=== PATIENT | male | born 1975 | race Caucasian/White ===

== ENCOUNTER 2016-11-22 09:29 | Emergency (ER) | payer OTHER ==
[~2016-11-22] VITALS: Wt 90.7 kg
[~2016-11-22 09:29] MED LIST: BACTRIM DS 8001 TA1 PO; HYDROCODONE BIT1 T11 PO; KEFLEX500 MG PO; NAPROSYN500 MG PO; ROBITUSSIN-AC480 ML PO; SUDAFED60 MG PO; VIBRAMYCIN100 MG PO; VICODIN 5/500 505 MG PO; ZOVIRAX400 MG PO
[2016-11-22 10:06] LABS: BASO # 0.1 10*3/uL (0.0-0.1); BASO % 0.5 % (0.0-1.0); EOS # 0.4 10*3/uL (0.0-0.4); EOS % 3.7 % (1.0-4.0); HEMATOCRIT 44.7 % (42.0-52.0); HEMOGLOBIN 15.8 g/dl (14.0-18.0); LYMPH # 1.4 10*3/uL (1.3-4.4); LYMPH % 14.5 % (27.0-41.0); MEAN CELL VOLUME 86.3 fl (80.0-94.0); MEAN CORPUSCULAR HGB 30.5 pg (27.0-31.0); MEAN CORPUSCULAR HGB CONC 35.3 g/dl (33.0-37.0); NEUT % 70.9 % (47.0-73.0); PLATELET COUNT AUTOMATED 200 10*3/uL (130-400); RED BLOOD COUNT 5.18 10*6/uL (4.50-5.90); RED CELL DISTRI WIDTH 12.2 % (0-14.5); WHITE BLOOD COUNT 9.8 10*3/uL (4.8-10.8)
[2016-11-22 10:20] LABS: ALBUMIN 3.8 gm/dl (3.1-4.5); ALKALINE PHOSPHATASE 134 U/L (45-117); BILIRUBIN, TOTAL 2.8 mg/dl (0.2-1.0); BUN 9 mg/dl (7-24); CARBON DIOXIDE 27 mmol/L (21-32); CHLORIDE 101 mmol/L (98-107); EST GLOM FILT AFRICAN AMERICAN > 60 ml/min; GLUCOSE 99 mg/dL (65-99); POTASSIUM 4.1 mmol/L (3.5-5.1); SGOT/AST 106 IU/L (3-35); SGPT/ALT 185 U/L (12-78); SODIUM 138 mmol/L (136-145); TOTAL PROTEIN 8.1 gm/dL (6.4-8.2)
[2016-11-22] MEDS ORDERED: CEPHALEXIN500 M1 PO (10:42)
[2016-11-22] MEDS ORDERED: BACTRIM DS 8001 TA1 PO (10:42)
== END 2016-11-22 12:01 | disposition home or self-care (01) ==
LOC: ED 09:29
PROVIDERS: Nurse Practitioner Family
DX: L03.90 Cellulitis, unspecified (principal); F17.200 Nicotine dependence, unspecified, uncomplicated

== ENCOUNTER 2016-12-23 11:33 | Inpatient (IN) | payer OTHER ==
[~2016-12-23] VITALS: Ht 177.8 cm; Wt 81.7 kg
[~2016-12-23 11:33] MED LIST changes: +CEPHALEXIN500 M1 PO
[2016-12-23 11:41] VITALS: BP 134/90
[2016-12-23 12:18] LABS: BASO # 0.1 10*3/uL (0.0-0.1); BASO % 0.7 % (0.0-1.0); EOS # 0.1 10*3/uL (0.0-0.4); EOS % 1.7 % (1.0-4.0); HEMATOCRIT 43.5 % (42.0-52.0); HEMOGLOBIN 15.2 g/dl (14.0-18.0); LYMPH # 1.2 10*3/uL (1.3-4.4); LYMPH % 14.6 % (27.0-41.0); MEAN CELL VOLUME 85.3 fl (80.0-94.0); MEAN CORPUSCULAR HGB 29.8 pg (27.0-31.0); MEAN CORPUSCULAR HGB CONC 34.9 g/dl (33.0-37.0); MEAN PLATELET VOLUME 9.5 fl (9.6-12.3); MONO # 0.5 10*3/uL (0.1-1.0); MONO % 5.7 % (3.0-9.0); NEUT # 6.3 10*3/uL (2.3-7.9); NEUT % 76.8 % (47.0-73.0); PLATELET COUNT AUTOMATED 262 10*3/uL (130-400); RED CELL DISTRI WIDTH 12.3 % (0-14.5); WHITE BLOOD COUNT 8.2 10*3/uL (4.8-10.8)
[2016-12-23 12:32] LABS: BILIRUBIN NEGATIVE (NEGATIVE); BLOOD NEGATIVE (NEGATIVE); CLARITY CLEAR (CLEAR); COLOR YELLOW (YELLOW); GLUCOSE NEGATIVE (NEGATIVE); KETONE NEGATIVE (NEGATIVE); LEUKO ESTERASE NEGATIVE (NEGATIVE); NITRITE NEGATIVE (NEGATIVE); PH 8.5 (5.0-9.0); PROTEIN TRACE (NEGATIVE)
[2016-12-23 12:34] LABS: ALBUMIN 3.7 gm/dl (3.1-4.5); ALKALINE PHOSPHATASE 116 U/L (45-117); BILIRUBIN, TOTAL 1.5 mg/dl (0.2-1.0); BUN 7 mg/dl (7-24); CARBON DIOXIDE 28 mmol/L (21-32); CHLORIDE 106 mmol/L (98-107); EST GLOM FILT AFRICAN AMERICAN > 60 ml/min; GLUCOSE 134 mg/dL (65-99); MAGNESIUM 2.1 mg/dL (1.5-2.1); POTASSIUM 3.8 mmol/L (3.5-5.1); SGOT/AST 74 IU/L (3-35); SGPT/ALT 141 U/L (12-78); SODIUM 140 mmol/L (136-145); TOTAL PROTEIN 7.8 gm/dL (6.4-8.2)
[2016-12-23 12:36] LABS: URINE AMPHETAMINES < 1000 (1000ng/ml); URINE BARBITURATES < 200 (200ng/ml); URINE COCAINE > 300 (300ng/ml)
[2016-12-23 12:40] LABS: C-REACTIVE PROTEIN < 0.29 MG/DL (0-0.3)
[2016-12-23 12:51] LABS: BACTERIA TRACE; MUCOUS 2+; URINE REFLEX COMMENT NO (NO)
[2016-12-23 12:55] VITALS: BP 121/72
[2016-12-23 13:49] LABS: PROTHROMBIN TIME 10.3 SECONDS (9.0-12.4)
[2016-12-23 14:00] VITALS: BP 114/58
[2016-12-23 15:42] VITALS: BP 126/73
[2016-12-23 20:00] VITALS: BP 117/71
[2016-12-24] VITALS: BP 118/64
[2016-12-24 04:00] VITALS: BP 133/71
[2016-12-24 08:00] VITALS: BP 124/66
[2016-12-24 08:34] LABS: HEPATITIS C VIRUS ANTIBODY >11.0 s/co (0.0-0.9)
[2016-12-24 12:00] VITALS: BP 118/70
[2016-12-24 16:00] VITALS: BP 128/69
[2016-12-24 20:00] VITALS: BP 111/58
[2016-12-25 00:06] VITALS: BP 121/67
[2016-12-25 04:00] VITALS: BP 120/65
[2016-12-25 06:11] LABS: BASO # 0.1 10*3/uL (0.0-0.1); BASO % 0.6 % (0.0-1.0); EOS # 0.3 10*3/uL (0.0-0.4); HEMATOCRIT 47.5 % (42.0-52.0); HEMOGLOBIN 15.9 g/dl (14.0-18.0); IG # 0.1 10*3/uL (0.0-0.1); MEAN CORPUSCULAR HGB 29.7 pg (27.0-31.0); MEAN CORPUSCULAR HGB CONC 33.5 g/dl (33.0-37.0); MEAN PLATELET VOLUME 9.5 fl (9.6-12.3); MONO # 0.6 10*3/uL (0.1-1.0); MONO % 7.9 % (3.0-9.0); NEUT # 4.7 10*3/uL (2.3-7.9); NEUT % 60.9 % (47.0-73.0); PLATELET COUNT AUTOMATED 223 10*3/uL (130-400); RED BLOOD COUNT 5.36 10*6/uL (4.50-5.90); RED CELL DISTRI WIDTH 12.9 % (0-14.5); WHITE BLOOD COUNT 7.8 10*3/uL (4.8-10.8)
[2016-12-25 06:30] LABS: MEAN CELL VOLUME 88.6 fl (80.0-94.0)
[2016-12-25 06:36] LABS: BUN 11 mg/dl (7-24); CARBON DIOXIDE 32 mmol/L (21-32); CHLORIDE 104 mmol/L (98-107); EST GLOM FILT AFRICAN AMERICAN > 60 ml/min; GLUCOSE 111 mg/dL (65-99); MAGNESIUM 2.3 mg/dL (1.5-2.1); PHOSPHOROUS 3.6 mg/dL (2.5-4.9); POTASSIUM 3.6 mmol/L (3.5-5.1); SODIUM 143 mmol/L (136-145)
[2016-12-25 08:00] VITALS: BP 120/70
[2016-12-25 12:00] VITALS: BP 124/66
[2016-12-25 16:00] VITALS: BP 120/62
[2016-12-25 20:00] VITALS: BP 120/60
[2016-12-26] VITALS: BP 114/67
[2016-12-26 08:00] VITALS: BP 110/62
[2016-12-26 12:00] VITALS: BP 122/78
[2016-12-26 16:00] VITALS: BP 130/76
[2016-12-26 20:00] VITALS: BP 123/69
[2016-12-27] VITALS: BP 108/57
[2016-12-27 08:00] VITALS: BP 112/70
[2016-12-27 12:00] VITALS: BP 108/60
[2016-12-27 16:00] VITALS: BP 102/88
[2016-12-27 20:00] VITALS: BP 137/85
[2016-12-28] VITALS: BP 121/64
[2016-12-28 06:51] LABS: BASO # 0.1 10*3/uL (0.0-0.1); BASO % 1.1 % (0.0-1.0); EOS # 0.4 10*3/uL (0.0-0.4); EOS % 4.5 % (1.0-4.0); HEMATOCRIT 47.3 % (42.0-52.0); IG # 0.1 10*3/uL (0.0-0.1); LYMPH # 2.3 10*3/uL (1.3-4.4); LYMPH % 27.8 % (27.0-41.0); MEAN CELL VOLUME 88.1 fl (80.0-94.0); MEAN CORPUSCULAR HGB 29.8 pg (27.0-31.0); MEAN CORPUSCULAR HGB CONC 33.8 g/dl (33.0-37.0); MEAN PLATELET VOLUME 9.7 fl (9.6-12.3); MONO # 0.7 10*3/uL (0.1-1.0); NEUT # 4.6 10*3/uL (2.3-7.9); NEUT % 56.6 % (47.0-73.0); PLATELET COUNT AUTOMATED 248 10*3/uL (130-400); RED BLOOD COUNT 5.37 10*6/uL (4.50-5.90); RED CELL DISTRI WIDTH 12.7 % (0-14.5); WHITE BLOOD COUNT 8.1 10*3/uL (4.8-10.8)
[2016-12-28 07:17] LABS: EST GLOM FILT AFRICAN AMERICAN > 60 ml/min
[2016-12-28 08:00] VITALS: BP 118/68
[2016-12-28] MEDS ORDERED: ZOFRAN4 MG PO (11:44)
[2016-12-28] MEDS ORDERED: ATARAX,VISTARIL50 MG PO (11:44)
[2016-12-28] MEDS ORDERED: ROPINIROLE HYD0.5 MG PO (11:44)
== END 2016-12-28 12:31 | disposition home or self-care (01) | DRG 897 ==
LOC: ED 11:33 → ICCU 12:13 → EDHOLD 12:13 → 5E 13:17 → ICCU 15:17 → 4E 12-24 17:53
PROVIDERS: Emergency Medicine; Internal Medicine
DX: F11.23 Opioid dependence with withdrawal (principal); E83.41 Hypermagnesemia; B19.20 Unspecified viral hepatitis C without hepatic coma; R73.9 Hyperglycemia, unspecified; D72.825 Bandemia; F14.10 Cocaine abuse, uncomplicated; F19.10 Other psychoactive substance abuse, uncomplicated; Z91.013 Allergy to seafood; Z91.041 Radiographic dye allergy status

== ENCOUNTER 2017-01-23 03:52 | Inpatient (IN) | payer OTHER ==
[~2017-01-23] VITALS: Ht 180.3 cm; Wt 86.8 kg
[~2017-01-23 03:52] MED LIST changes: +ATARAX,VISTARIL50 MG PO; +ROPINIROLE HYD0.5 MG PO; +ZOFRAN4 MG PO
[2017-01-23 04:06] VITALS: BP 133/73
[2017-01-23 05:19] LABS: BASO # 0.1 10*3/uL (0.0-0.1); BASO % 0.5 % (0.0-1.0); EOS # 0.2 10*3/uL (0.0-0.4); EOS % 1.6 % (1.0-4.0); HEMATOCRIT 42.5 % (42.0-52.0); HEMOGLOBIN 14.8 g/dl (14.0-18.0); IG # 0.1 10*3/uL (0.0-0.1); LYMPH # 1.1 10*3/uL (1.3-4.4); LYMPH % 10.2 % (27.0-41.0); MEAN CELL VOLUME 86.4 fl (80.0-94.0); MEAN CORPUSCULAR HGB 30.1 pg (27.0-31.0); MEAN CORPUSCULAR HGB CONC 34.8 g/dl (33.0-37.0); MEAN PLATELET VOLUME 9.5 fl (9.6-12.3); MONO # 0.7 10*3/uL (0.1-1.0); MONO % 6.7 % (3.0-9.0); NEUT # 8.6 10*3/uL (2.3-7.9); NEUT % 80.3 % (47.0-73.0); PLATELET COUNT AUTOMATED 238 10*3/uL (130-400); RED BLOOD COUNT 4.92 10*6/uL (4.50-5.90); RED CELL DISTRI WIDTH 12.6 % (0-14.5); WHITE BLOOD COUNT 10.7 10*3/uL (4.8-10.8)
[2017-01-23 05:37] LABS: ALBUMIN 3.3 gm/dl (3.1-4.5); ALKALINE PHOSPHATASE 132 U/L (45-117); BILIRUBIN, TOTAL 1.2 mg/dl (0.2-1.0); BUN 12 mg/dl (7-24); C-REACTIVE PROTEIN 0.55 MG/DL (0-0.3); CARBON DIOXIDE 27 mmol/L (21-32); CHLORIDE 106 mmol/L (98-107); EST GLOM FILT AFRICAN AMERICAN > 60 ml/min; GLUCOSE 141 mg/dL (65-99); MAGNESIUM 1.9 mg/dL (1.5-2.1); POTASSIUM 3.7 mmol/L (3.5-5.1); SGOT/AST 55 IU/L (3-35); SGPT/ALT 130 U/L (12-78); SODIUM 143 mmol/L (136-145); TOTAL PROTEIN 7.5 gm/dL (6.4-8.2)
[2017-01-23 05:41] LABS: TROPONIN I < 0.015 ng/ml (<0.045)
[2017-01-23 06:07] VITALS: BP 119/76
[2017-01-23 08:35] LABS: PROTHROMBIN TIME 10.7 SECONDS (9.0-12.4)
[2017-01-23 08:48] VITALS: BP 140/60
[2017-01-23 10:12] LABS: BILIRUBIN 1+ (NEGATIVE); BLOOD NEGATIVE (NEGATIVE); CLARITY SL CLOUDY (CLEAR); COLOR YELLOW (YELLOW); GLUCOSE NEGATIVE (NEGATIVE); KETONE TRACE (NEGATIVE); LEUKO ESTERASE NEGATIVE (NEGATIVE); NITRITE NEGATIVE (NEGATIVE); PH 6.5 (5.0-9.0); PROTEIN 1+ (NEGATIVE); SPECIFIC GRAVITY 1.025 (1.005-1.030)
[2017-01-23 10:42] LABS: MUCOUS 1+
[2017-01-23 10:43] LABS: URINE REFLEX COMMENT NO (NO)
[2017-01-23 10:50] LABS: URINE AMPHETAMINES < 1000 (1000ng/ml); URINE BARBITURATES < 200 (200ng/ml); URINE COCAINE > 300 (300ng/ml)
[2017-01-23 16:00] VITALS: BP 116/74
[2017-01-23 20:00] VITALS: BP 133/74
[2017-01-24] VITALS: BP 137/70
[2017-01-24 04:00] VITALS: BP 121/83
[2017-01-24 08:00] VITALS: BP 120/68
[2017-01-24 12:00] VITALS: BP 120/70
[2017-01-24 16:00] VITALS: BP 120/70
[2017-01-24 20:00] VITALS: BP 126/73
[2017-01-25] VITALS: BP 115/73
[2017-01-25 08:00] VITALS: BP 108/72
[2017-01-25 12:00] VITALS: BP 112/70
== END 2017-01-25 14:15 | disposition left against medical advice (07) | DRG 894 ==
LOC: ED 03:52 → EDHOLD 06:12 → 4E 06:12
PROVIDERS: Emergency Medicine Emergency Medical Services; Internal Medicine
DX: F11.23 Opioid dependence with withdrawal (principal); E44.0 Moderate protein-calorie malnutrition; Z68.25 Body mass index [BMI] 25.0-25.9, adult; F14.10 Cocaine abuse, uncomplicated; F19.10 Other psychoactive substance abuse, uncomplicated; B19.20 Unspecified viral hepatitis C without hepatic coma; D72.810 Lymphocytopenia; R73.9 Hyperglycemia, unspecified; E80.6 Other disorders of bilirubin metabolism; Z53.21 Procedure and treatment not carried out due to patient leaving prior to being seen by health care provider

== ENCOUNTER 2017-02-04 09:34 | Inpatient (IN) | payer SELFPAY ==
[~2017-02-04] VITALS: Ht 177.8 cm; Wt 80.9 kg
[2017-02-04 09:48] VITALS: BP 120/81
[2017-02-04 10:21] LABS: BASO # 0.1 10*3/uL (0.0-0.1); BASO % 0.6 % (0.0-1.0); EOS # 0.1 10*3/uL (0.0-0.4); EOS % 0.9 % (1.0-4.0); HEMATOCRIT 47.4 % (42.0-52.0); HEMOGLOBIN 16.6 g/dl (14.0-18.0); LYMPH # 1.4 10*3/uL (1.3-4.4); LYMPH % 15.5 % (27.0-41.0); MEAN CORPUSCULAR HGB 30.1 pg (27.0-31.0); MONO # 0.6 10*3/uL (0.1-1.0); MONO % 6.2 % (3.0-9.0); NEUT # 6.9 10*3/uL (2.3-7.9); NEUT % 76.4 % (47.0-73.0); PLATELET COUNT AUTOMATED 286 10*3/uL (130-400); RED BLOOD COUNT 5.51 10*6/uL (4.50-5.90); RED CELL DISTRI WIDTH 12.6 % (0-14.5)
[2017-02-04 10:30] LABS: PROTHROMBIN TIME 10.5 SECONDS (9.0-12.4)
[2017-02-04 10:37] LABS: ALBUMIN 3.7 gm/dl (3.1-4.5); BILIRUBIN, TOTAL 2.6 mg/dl (0.2-1.0); BUN 18 mg/dl (7-24); C-REACTIVE PROTEIN 0.97 MG/DL (0-0.3); CARBON DIOXIDE 23 mmol/L (21-32); CHLORIDE 104 mmol/L (98-107); CPK 84 U/L (39-308); EST GLOM FILT AFRICAN AMERICAN > 60 ml/min; GLUCOSE 172 mg/dL (65-99); MAGNESIUM 2.2 mg/dL (1.5-2.1); POTASSIUM 3.9 mmol/L (3.5-5.1); SGOT/AST 53 IU/L (3-35); SGPT/ALT 116 U/L (12-78); SODIUM 140 mmol/L (136-145); TOTAL PROTEIN 8.2 gm/dL (6.4-8.2)
[2017-02-04 10:38] LABS: ALKALINE PHOSPHATASE 129 U/L (45-117)
[2017-02-04 10:39] LABS: CKMB < 0.5 ng/ml (0.5-3.6); TROPONIN I < 0.015 ng/ml (<0.045)
[2017-02-04 11:51] LABS: BILIRUBIN 1+ (NEGATIVE); BLOOD NEGATIVE (NEGATIVE); CLARITY SL CLOUDY (CLEAR); COLOR YELLOW (YELLOW); GLUCOSE NEGATIVE (NEGATIVE); KETONE NEGATIVE (NEGATIVE); LEUKO ESTERASE NEGATIVE (NEGATIVE); NITRITE NEGATIVE (NEGATIVE); PH 6.5 (5.0-9.0); PROTEIN TRACE (NEGATIVE)
[2017-02-04 11:59] LABS: EPITHELIAL CELLS 0-2; MUCOUS 2+; URINE REFLEX COMMENT NO (NO); WBC 0-2 wbc/hpf (0-5)
[2017-02-04 12:18] LABS: LA>2 REFLEX 2 HR DRAW NOW
[2017-02-04 12:22] LABS: URINE AMPHETAMINES < 1000 (1000ng/ml); URINE BARBITURATES < 200 (200ng/ml); URINE COCAINE > 300 (300ng/ml)
[2017-02-04 12:45] VITALS: BP 127/66
[2017-02-04 15:17] VITALS: BP 115/73
[2017-02-04 16:00] VITALS: BP 125/75
[2017-02-04 20:00] VITALS: BP 115/78
[2017-02-05 00:29] VITALS: BP 115/70
[2017-02-05 04:00] VITALS: BP 111/73
[2017-02-05 05:21] LABS: BILIRUBIN NEGATIVE (NEGATIVE); BLOOD NEGATIVE (NEGATIVE); CLARITY CLEAR (CLEAR); COLOR YELLOW (YELLOW); GLUCOSE NEGATIVE (NEGATIVE); KETONE NEGATIVE (NEGATIVE); LEUKO ESTERASE NEGATIVE (NEGATIVE); NITRITE NEGATIVE (NEGATIVE); PROTEIN TRACE (NEGATIVE); SPECIFIC GRAVITY 1.025 (1.005-1.030); UROBILINOGEN 0.2 E.U./dl (0.2-1.0)
[2017-02-05 05:31] LABS: MUCOUS TRACE
[2017-02-05 05:32] LABS: URINE REFLEX COMMENT NO (NO); WBC 0-2 wbc/hpf (0-5)
[2017-02-05 08:00] VITALS: BP 115/68
[2017-02-05 12:00] VITALS: BP 115/77
[2017-02-05 16:00] VITALS: BP 113/68
[2017-02-05 20:00] VITALS: BP 116/69
[2017-02-06] VITALS: BP 128/73
[2017-02-06 08:00] VITALS: BP 124/67
[2017-02-06 12:00] VITALS: BP 109/68
[2017-02-06 16:00] VITALS: BP 134/77
[2017-02-06 20:00] VITALS: BP 131/73
[2017-02-07] VITALS: BP 100/69
[2017-02-07 06:26] LABS: BUN 11 mg/dl (7-24); EST GLOM FILT AFRICAN AMERICAN > 60 ml/min
[2017-02-07 08:00] VITALS: BP 116/70
[2017-02-07 12:00] VITALS: BP 102/66
[2017-02-07 16:00] VITALS: BP 119/59
[2017-02-07 20:00] VITALS: BP 134/71
[2017-02-08] VITALS: BP 123/69
[2017-02-08 06:04] LABS: BASO # 0.1 10*3/uL (0.0-0.1); BASO % 0.7 % (0.0-1.0); EOS # 0.4 10*3/uL (0.0-0.4); EOS % 5.3 % (1.0-4.0); HEMATOCRIT 42.3 % (42.0-52.0); HEMOGLOBIN 14.5 g/dl (14.0-18.0); IG # 0.1 10*3/uL (0.0-0.1); LYMPH # 2.3 10*3/uL (1.3-4.4); LYMPH % 27.8 % (27.0-41.0); MEAN CELL VOLUME 89.6 fl (80.0-94.0); MEAN CORPUSCULAR HGB 30.7 pg (27.0-31.0); MEAN CORPUSCULAR HGB CONC 34.3 g/dl (33.0-37.0); MEAN PLATELET VOLUME 9.6 fl (9.6-12.3); MONO # 0.7 10*3/uL (0.1-1.0); MONO % 8.4 % (3.0-9.0); NEUT # 4.6 10*3/uL (2.3-7.9); NEUT % 56.7 % (47.0-73.0); PLATELET COUNT AUTOMATED 225 10*3/uL (130-400); RED BLOOD COUNT 4.72 10*6/uL (4.50-5.90); RED CELL DISTRI WIDTH 12.6 % (0-14.5); WHITE BLOOD COUNT 8.2 10*3/uL (4.8-10.8)
[2017-02-08 06:06] LABS: BUN 12 mg/dl (7-24); CARBON DIOXIDE 29 mmol/L (21-32); CHLORIDE 106 mmol/L (98-107); EST GLOM FILT AFRICAN AMERICAN > 60 ml/min; GLUCOSE 99 mg/dL (65-99); POTASSIUM 3.9 mmol/L (3.5-5.1); SODIUM 143 mmol/L (136-145)
[2017-02-08 08:00] VITALS: BP 118/72
[2017-02-08] MEDS ORDERED: AVPAK AZITHROM250 M1 PO (10:25)
[2017-02-08] MEDS ORDERED: BACTRIM DS 8001 TA1 PO (10:25)
[2017-02-08 12:00] VITALS: BP 136/72
== END 2017-02-08 11:01 | disposition home or self-care (01) | DRG 871 ==
LOC: ED 09:34 → 5E 12:19 → EDHOLD 12:19 → 5E 12:22 → ICCU 14:54 → 5E 02-05 10:17
PROVIDERS: Emergency Medicine; Hospitalist; Internal Medicine
DX: A41.9 Sepsis, unspecified organism (principal); R65.21 Severe sepsis with septic shock; F11.23 Opioid dependence with withdrawal; L03.114 Cellulitis of left upper limb; L02.414 Cutaneous abscess of left upper limb; R74.0 Nonspecific elevation of levels of transaminase and lactic acid dehydrogenase [LDH]; R73.9 Hyperglycemia, unspecified; E80.6 Other disorders of bilirubin metabolism; E83.41 Hypermagnesemia; F14.10 Cocaine abuse, uncomplicated; B95.62 Methicillin resistant Staphylococcus aureus infection as the cause of diseases classified elsewhere; T40.2X1A Poisoning by other opioids, accidental (unintentional), initial encounter; B19.20 Unspecified viral hepatitis C without hepatic coma; Z91.041 Radiographic dye allergy status; Z91.013 Allergy to seafood; Z87.442 Personal history of urinary calculi; Z82.49 Family history of ischemic heart disease and other diseases of the circulatory system; Y92.89 Other specified places as the place of occurrence of the external cause

== ENCOUNTER 2017-12-03 15:24 | Emergency (ER) | payer SELFPAY ==
[~2017-12-03] VITALS: Ht 182.8 cm; Wt 74.8 kg
[~2017-12-03 15:24] MED LIST changes: +AVPAK AZITHROM250 M1 PO
[2017-12-03 16:17] LABS: BASO # 0.1 10*3/uL (0.0-0.1); BASO % 0.4 % (0.0-1.0); EOS # 0.1 10*3/uL (0.0-0.4); EOS % 0.6 % (1.0-4.0); HEMATOCRIT 47.4 % (42.0-52.0); HEMOGLOBIN 16.1 g/dl (14.0-18.0); LYMPH # 0.9 10*3/uL (1.3-4.4); LYMPH % 6.7 % (27.0-41.0); MEAN CELL VOLUME 87.6 fl (80.0-94.0); MEAN CORPUSCULAR HGB 29.8 pg (27.0-31.0); MEAN PLATELET VOLUME 9.8 fl (9.6-12.3); MONO # 0.5 10*3/uL (0.1-1.0); MONO % 3.3 % (3.0-9.0); NEUT # 12.3 10*3/uL (2.3-7.9); NEUT % 88.5 % (47.0-73.0); PLATELET COUNT AUTOMATED 202 10*3/uL (130-400); RED BLOOD COUNT 5.41 10*6/uL (4.50-5.90); RED CELL DISTRI WIDTH 12.3 % (0-14.5); WHITE BLOOD COUNT 13.9 10*3/uL (4.8-10.8)
[2017-12-03 16:28] LABS: ACT PARTIAL THROMBO TIME 22.6 SECONDS (20.8-31.5)
[2017-12-03 16:33] LABS: ALBUMIN 4.1 gm/dl (3.1-4.5); ALKALINE PHOSPHATASE 148 U/L (45-117); BUN 17 mg/dl (7-24); CHLORIDE 97 mmol/L (98-107); CREATININE 1.51 mg/dL (0.70-1.30); POTASSIUM 4.3 mmol/L (3.5-5.1); SGOT/AST 63 IU/L (3-35); SGPT/ALT 125 U/L (12-78); SODIUM 134 mmol/L (136-145); TOTAL PROTEIN 8.8 gm/dL (6.4-8.2)
[2017-12-03 16:37] LABS: ACETAMINOPHEN (TYLENOL) < 2.0 ug/ml (10-30); ETHYL ALCOHOL < 3.0 mg/dl (<3); TROPONIN I < 0.015 ng/ml (<0.045)
== END 2017-12-03 18:40 ==
LOC: ED 15:24
PROVIDERS: Student in an Organized Health Care Education/Training Program
DX: T40.1X1A Poisoning by heroin, accidental (unintentional), initial encounter (principal); F14.10 Cocaine abuse, uncomplicated; Z87.442 Personal history of urinary calculi; Z79.899 Other long term (current) drug therapy; Z91.013 Allergy to seafood; Y92.9 Unspecified place or not applicable

== ENCOUNTER 2018-01-13 22:38 | Emergency (ER) | payer MEDICARE ==
[~2018-01-13] VITALS: Ht 154.9 cm; Wt 99.8 kg
[2018-01-13] MEDS ORDERED: SEPTDS PO (23:57)
[2018-01-13] MEDS ORDERED: CEPHALEXIN500 M1 PO (23:57)
== END 2018-01-14 00:05 | disposition left against medical advice (07) ==
LOC: ED 22:38
DX: L02.512 Cutaneous abscess of left hand (principal); L03.114 Cellulitis of left upper limb; Z91.041 Radiographic dye allergy status; Z91.018 Allergy to other foods